=== PATIENT | male | born 1960 | race Caucasian/White ===

== ENCOUNTER → 2018-12-27 10:08 | Outpatient (CLI) | payer OTHER, SELFPAY ==
[2018-12-27 12:37] LABS: Hematocrit 46.5 % (40-54); Hemoglobin 15.3 g/dl (13.0-16.5); Mean Corp Hgb Conc 32.9 g/gl (32-36); Mean Corpuscular Hgb 31.1 pg (27.0-32.0); Mean Corpuscular Volume 94.5 fL (80-94); Mean Platelet Vol. 9.1 fl (6.2-12.0); Platelet Count 349 K/mm3 (150-450); RBC Distribution Width CV 13.1 % (11.6-14.6); RBC Distribution Width SD 44.1 fl (35.1-43.9); Red Blood Count 4.92 M/mm3 (4.6-6.2); White Blood Count 9.6 K/mm3 (4.4-11.0)
[2018-12-27 12:52] LABS: Scan Indicated on CBC? Y/N NO
[2018-12-27 12:54] LABS: ALB/GLOB Ratio 1.1 RATIO (0.9-2.4); AST(SGOT) 19 U/L (15-37); Alanine Aminotransfer ALT/SGPT 33 U/L (16-61); Alkaline Phosphatase 75 U/L (45-117); Anion Gap 3 (5-15); BUN 15 mg/dL (7-18); BUN/Creat Ratio 17.2 RATIO (10-20); Calcium,Total 8.6 mg/dL (8.5-10.1); Chloride 104 mmol/L (98-107); Creatinine, Serum 0.87 mg/dL (0.70-1.30); EST Glomerular Filtration Rate 96 mL/min (>60); Est Glom Filt Rate - Afr Amer 116 mL/min (>60); Globulin 3.5 g/dL (2.2-4.2); Glucose 100 mg/dL (74-106); Potassium 3.9 mmol/L (3.5-5.1); Protein, Total 7.5 g/dL (6.4-8.2); Sodium Level 136 mmol/L (136-145)
[2018-12-30 05:07] LABS: QNTFERON TB Mitogen Value > 10.00 IU/mL (.); QNTFERON TB Nil Value 0.01 IU/mL (.); QNTFERON TB1+ Ag Value 0.02 IU/mL (.); QNTFERON TB2+ Ag Value 0.02 IU/mL (.)
[2018-12-30 13:17] LABS: QNTIFERON TB Positive Criteria Negative (Negative)
== END ==
PROVIDERS: Referring Provider Dermatology Pediatric Dermatology; Visit Provider Dermatology Pediatric Dermatology
DX: L40.0 Psoriasis vulgaris (principal)
CPT/HCPCS: 36415; 80053; 85027; 86480

== ENCOUNTER 2021-12-09 09:48 | Outpatient (CLI) | payer OTHER, SELFPAY ==
[2021-12-12 00:06] LABS: QNTFERON TB Mitogen Value > 10.00 IU/mL (.); QNTFERON TB Nil Value 0.01 IU/mL (.); QNTFERON TB1+ Ag Value 0 IU/mL (.); QNTFERON TB2+ Ag Value 0.01 IU/mL (.)
[2021-12-12 18:58] LABS: Hepatitis B Core Ab Total Negative (Negative); QNTIFERON TB Positive Criteria Negative (Negative)
== END 2021-12-09 23:59 | disposition home or self-care (01) ==
LOC: MTLAB 09:50
PROVIDERS: Referring Provider Physician Assistant Medical; Visit Provider Physician Assistant Medical
DX: L40.0 Psoriasis vulgaris (principal); L81.4 Other melanin hyperpigmentation; Z79.899 Other long term (current) drug therapy
CPT/HCPCS: 36415; 86480; 86704

== ENCOUNTER → 2023-07-27 | Outpatient (CLI) | payer OTHER, SELFPAY ==
[2023-07-27 15:23] LABS: Absolute Neutrophil Count 3.9 X10^3/uL (2.0-7.7); Basophil# 0.08 X10^3/uL; Basophil% 1.2 % (0-1); Eosinophil# 0.26 X10^3/uL; Eosinophils% 3.9 % (0-5); Hematocrit 44.7 % (40-54); Hemoglobin 14.4 g/dL (13.0-16.5); Lymphocyte % 25.5 % (19-41); Mean Corp Hgb Conc 32.2 g/dL (32-36); Mean Corpuscular Hgb 31.6 pg (27.0-32.0); Mean Platelet Vol. 9.3 fl (6.2-12.0); Monocyte# 0.73 X10^3/uL; NRBC Flagged by Analyzer 0 % (0-5); Neutrophil # 3.88 X10^3/uL (2.7-7.7); Neutrophil % 58.2 % (47-70); Platelet Count 338 K/mm3 (150-450); RBC Distribution Width SD 46.1 fl (35.1-43.9); Red Blood Count 4.56 M/mm3 (4.6-6.2); White Blood Count 6.7 K/mm3 (4.4-11.0)
[2023-07-27 16:00] LABS: AST(SGOT) 21 U/L (15-37); Alanine Aminotransfer ALT/SGPT 34 U/L (16-61); Albumin, Serum 3.3 g/dL (3.2-5.0); Alkaline Phosphatase 78 U/L (45-117); Anion Gap 6 (5-15); BUN 18 mg/dL (7-18); BUN/Creat Ratio 19.3 RATIO (10-20); Calcium,Total 8.4 mg/dL (8.5-10.1); Chloride 108 mmol/L (98-107); Creatinine, Serum 0.93 mg/dL (0.70-1.30); EST Glomerular Filtration Rate 87 mL/min (>60); Est Glom Filt Rate - Afr Amer 105 mL/min (>60); Globulin 3.3 g/dL (2.2-4.2); Glucose 89 mg/dL (74-106); Potassium 4.5 mmol/L (3.5-5.1); Protein, Total 6.6 g/dL (6.4-8.2); Sodium Level 139 mmol/L (136-145)
[2023-07-29 10:11] LABS: Hepatitis B Core Ab Total Negative (Negative); QNTFERON TB Mitogen Value > 10.00 IU/mL (.); QNTFERON TB Nil Value 0 IU/mL (.); QNTFERON TB1+ Ag Value 0.01 IU/mL (.); QNTFERON TB2+ Ag Value 0.01 IU/mL (.); QNTIFERON TB Positive Criteria Negative (Negative)
== END | disposition home or self-care (01) ==
PROVIDERS: Referring Provider Physician Assistant Medical; Visit Provider Physician Assistant Medical
DX: L40.0 Psoriasis vulgaris (principal); Z79.899 Other long term (current) drug therapy; Z79.620 Long term (current) use of immunosuppressive biologic; L72.0 Epidermal cyst
CPT/HCPCS: 36415; 80053; 85025; 86480; 86704

== ENCOUNTER → 2024-08-08 | Outpatient (CLI) | payer OTHER, SELFPAY ==
--- OUTSIDE RECORDS SUMMARY | 2024-08-08 11:34 | XMS RPT_ITS | CCD ---
Author Organization [facility] Care Team Providers [employer] Name Role Phone TRACY HAYES DO Attending Unavailable ENRIQUE BREWSTER Primary Care Unavailable ENRIQUE BREWSTER Primary Care Unavailable [facility] CIFUENTES Attending Unavailable Allergies Allergy Classification Reported Allergen(s) Allergy Type Date of Onset Reaction(s) Facility (1 source) Penicillins; Translations: [PENICILLINS] Propensity to adverse reactions to drug (disorder) [facility] Repository Problems Problem Classification Problem Date Documented Da te Episodic/Chronic Other lower respiratory disease (1 source) Pleurodynia; Translations: [Rib pain] Onset: 07-21-2024 Episodic Results Test Name Value Interpretation Reference Range Facil ity ED PROV NOTEon 07-21-2024 ED PROV NOTE HNO ID: [id number] Author: MC CIFUENTES MD Service: Emergency Medicine Author Type: Physician Type: ED Provider Notes Filed: 07/21/2024 10:25 Note Text: ED Provider Note Patient Name: Maritza Dempsey : 1960 SERVICE DATE: 07/21/24 History Patient presents with: Rib Pain: PT states he woke up 2 days ago and stretched his arms up, while stretching he coughed due to some congestion and he believes that there may be a rib out of place denies any falls or injuries. 63-year-old male history of hypertension presenting for right sided chest wall pain. Patient states he was stretching in the morning the other day and coughed and had immediate pain on the right side. No some slight bruising. States that it stayed persistent. He wanted to know if it was broken or not at this time. No difficulty breathing. Patient has had a cough and states that he smokes and has a chronic cough. Nonproductive. PAST MEDICAL HISTORY Diagnosis Date Hypertension History reviewed. No pertinent surgical history. No family history on file. Social History Tobacco Use Smoking status: Former Current packs/day: 0.50 Types: Cigarettes Smokeless tobacco: Never Vaping Use Vaping status: Never Used Substance and Sexual Activity Alcohol use: Not Currently Drug use: Never Sexual activity: Not on file ALLERGIES Allergen Reactions Penicillins Rash Review of Systems Constitutional: Negative for fatigue and fever. Respiratory: Positive for cough. Negative for shortness of breath. Cardiovascular: Positive for chest pain (Right chest wall). Negative for leg swelling. Gastrointestinal: Negative for abdominal pain, diarrhea and nausea. All other systems reviewed and are negative. Physical Exam Vitals [07/21/24 6619] BP Pulse Temp Temp src Resp SpO2 Weight Height 141/90 79 36.6 ?C (97.8 ?F) Oral 20 98 % 97.5 kg (215 lb) 1.829 m (6') Physical Exam Vitals and nursing note reviewed. Constitutional: Appearance: Normal appearance. He is normal weight. HENT: Head: Normocephalic. Pulmonary: Effort: Pulmonary effort is normal. No respiratory distress. Breath sounds: Normal breath sounds. No stridor. No wheezing, rhonchi or rales. Chest: Chest wall: Tenderness (Right lateral chest wall near ribs 7 and 8 with slight overlying ecchymoses.) present. Neurological: Mental Status: He is alert. Diagnostic Testing ED Labs Ordered and Reviewed - No data to display Procedures ED Course / Clinical Impression Clinical Impressions as of 07/21/24 1019 Rib pain MDM / Disposition / Plan 63-year-old male history of hypertension presenting for right sided chest wall pain. Physical exam as above. Differential diagnosis includes but is not limited to pneumothorax, pleural effusion, rib fracture, muscle strain. Rib series x-rays were obtained showing no significant fracture. Small pleural effusion however with 24 hours of time and already healing bruising site unlikely hemothorax or significant hemothorax. Patient not on blood thinners. No significant fractures or pneumothoraces. Patient able to tolerate I-S and pain. Was given Toradol. Given pain medication for home instructed use Tylenol and ibuprofen as needed. Should follow-up with PCP or back to emergency department if difficulty breathing or worsening chest pain was to happen. It is unlikely cardiac in nature given right lateral with popping sensation followed immediately by pain on the right-hand side of his chest wall. It is also significantly reproducible making musculoskeletal most likely diagnosis. Patient discharged from the Emergency Department. I do not feel that the patient's evaluation reveals any acute reason for admission at this time. I instructed them to either follow up with their primary care physician or promptly return to the Emergency Department for reevaluation should symptoms worsen or new symptoms develop. I explained what symptoms would indicate the need to return to the Emergency Department. Shared decision making was used. The patient voiced understanding of the treatment plan and is agreeable with it. History and Record Review External record(s) reviewed: PDMP reviewed. Differential Diagnoses - Chest wall pain is more likely for the following reason(s): suggested by HANDP - pneumothorax is less likely for the following reason(s): no evidence on imaging SIGNATURE: Mc Cifuentes MD - MC CIFUENTES 07/21/24 1025 [facility] XR RIB/CHST 3V AP RIB/OBL/CH ST Theo 07-21-2024 XR RIB/CHST 3V AP RIB/OBL/CHST R * * *Final Report* * * DATE OF EXAM: Jul 21 2024 5:14AM [id number] - XR RIB/CHST 3V AP RIB/OBL/CHST R / PROCEDURE REASON: Other * * * * Physician Interpretation * * * * EXAMINATION: XR RIB/CHST 3V AP RIB/OBL/CHST R CLINICAL HISTORY: Other, believes he coughed a rib out of place Technique: XR RIB/CHST 3V AP RIB/OBL/CHST R -- RIGHT with 2 views on 5 images Comparison: None RESULT: Frontal chest radiograph demonstrates a small right pleural effusion. Bibasilar opacity is noted. There is no pneumothorax. Heart size and pulmonary vasculature are within normal limits. No rib fracture or osseous lesions are identified. IMPRESSION: Small right pleural effusion. Bibasilar opacities likely due to atelectasis [employer] Transcribe Date/Time: Jul 21 2024 5:39A Dictated by : KAMERON CERDA MD This examination was interpreted and the report reviewed and electronically signed by: KAMERON CERDA MD on Jul 21 2024 5:41AM EST [id number] [facility] XR HAND MINIMUM 3 VIEWS RIGH Ton 07-07-2022 XR HAND MINIMUM 3 VIEWS RIGHT ORIGINAL EXAMINATION: THREE XRAY VIEWS OF THE RIGHT HAND 07/07/2022 1:46 pm COMPARISON: None. HISTORY: ORDERING SYSTEM PROVIDED HISTORY: Reason for Exam: evaluation for pain/injury. Pain and swelling due to dog bite. FINDINGS: No acute fracture or dislocation is evident. Osseous mineralization is within normal limits. No visible aggressive osseous lesions. Mild degenerative changes are present at the radiocarpal joint. Mild degenerative changes are also present of the distal radioulnar joint. Otherwise, visible joint spaces are maintained. Carpal arcs appear normal. Mild 4th distal interphalangeal joint osteophytosis. Significant soft tissue swelling is present of the hand, greatest dorsally. No visible soft tissue gas. IMPRESSION: 1. No acute osseous abnormalities. 2. Significant soft tissue swelling of the hand, greatest dorsally. Cellulitis among other etiologies are considered. No visible soft tissue gas. Interpreted by: Josse Coleman DO Preliminary Report By: Josse Coleman DO Electronically signed By Josse Coleman DO Dictated Date: 07/07/2022 1:49:53 PM Prelim Date: 07/07/2022 1:51:39 PM Sign Date: 07/07/2022 1:51:39 PM Ordering Provider: TRACY Jaimes [facility] Encounters Encounter Date Encounter Type Care Provider Facility Start: 07-21-2024 End: 07-21-2024 Emergency department patient visit ENRIQUE BREWSTER Facility:[id number] Start: 07-07-2022 End: 07-07-2022 ambulatory TRACY HAYES DO Facility:A Payers Date Payer Category Payer Unknown [id number] 2021 Unknown [id number] 1960 Unknown [id number] Summary Purpose Family History No Family History Records FoundNo Family History Records Found Advance Directives No Advanced Directives Records FoundNo Advanced Directives Records Found Additional Source Comments (unrecognized sect ion and content) No Status Records FoundNo Status Records Found INFORMATION SOURCE (unrecogn ized section and content) DATE CREATED AUTHOR 09/11/2022 [facility]) DATE CREATED AUTHOR AUTHOR'S JIMMIE CONNORS 07/23/2024 [facility] Ce nter FOR RECORDS PERTAINING TO PATIENTS WHO ARE OR HAVE BEEN ENROLLED IN A CHEMICAL DEPENDENCY/SUBSTANCEABUSE PROGRAM, SOME INFORMATION MAY BE OMITTED. This clinical summary was aggregated from multiple sources. Caution should be exercised in using it in the provision of clinical care. This summary normalizes information from multiple sources, and as a consequence, information in this document may materially change the coding, format and clinical context of patient data. In addition, data may be omitted in some cases. CLINICAL DECISIONS SHOULD BE BASED ON THE PRIMARY CLINICAL RECORDS. [facility]. provides no warranty or guarantee of the accuracy or completeness of information in this document.
[2024-08-10 21:07] LABS: QNTFERON TB Mitogen Value > 10.00 IU/mL (.); QNTFERON TB Nil Value 0 IU/mL (.); QNTFERON TB1+ Ag Value 0.01 IU/mL (.); QNTFERON TB2+ Ag Value 0.02 IU/mL (.); QNTIFERON TB Positive Criteria Negative (Negative)
== END | disposition home or self-care (01) ==
PROVIDERS: Referring Provider Physician Assistant Medical; Visit Provider Physician Assistant Medical
DX: L40.0 Psoriasis vulgaris (principal); F17.200 Nicotine dependence, unspecified, uncomplicated; Z79.899 Other long term (current) drug therapy
CPT/HCPCS: 36415; 86480

== ENCOUNTER → 2025-07-28 | Outpatient (CLI) | payer OTHER, SELFPAY ==
[2025-08-01 20:08] LABS: QNTFERON TB Mitogen Value > 10.00 IU/mL (.); QNTFERON TB Nil Value 0.29 IU/mL (.); QNTFERON TB1+ Ag Value 0.10 IU/mL (.); QNTFERON TB2+ Ag Value 0.05 IU/mL (.); QNTIFERON TB Positive Criteria Negative (Negative)
== END | disposition home or self-care (01) ==
PROVIDERS: Referring Provider Physician Assistant Medical; Visit Provider Physician Assistant Medical
DX: L40.0 Psoriasis vulgaris (principal)
CPT/HCPCS: 36415; 86480